=== PATIENT | female | born 1985 | race Caucasian/White ===

== ENCOUNTER 2016-05-15 13:07 | Emergency (ER) | payer OTHER ==
--- NOTE | 2016-05-15 13:36 | DIAGNOSTIC IMAGING REPORT ---
PROCEDURE: XR FINGER - LEFT INDICATION: TRAUMA/INJURY TECHNIQUE: Four views. COMPARISON: None. FINDINGS: fracture proximal phalanx first digit IMPRESSION: 1. fracture proximal phalanx first digit
--- NOTE | 2016-05-15 13:36 | DIAGNOSTIC IMAGING REPORT ---
PROCEDURE: XR FINGER - LEFT INDICATION: TRAUMA/INJURY TECHNIQUE: Four views. COMPARISON: None. FINDINGS: fracture proximal phalanx first digit IMPRESSION: 1. fracture proximal phalanx first digit
--- NOTE | 2016-05-15 15:14 | ED CLINICAL REPORT ---
Clinical Report - Physicians/Mid Levels [facility] [address] [place] [address] 05/15/2016 13:09 Patient: ROSENDO BRANHAM Time Seen: 1309; upon arrival, initial patient contact, initial documentation, patient care assumed. Arrived- By private vehicle. Historian- patient. HISTORY OF PRESENT ILLNESS Chief Complaint: Injury to the left thumb. The injury happened just prior to arrival. Occurred at home. The patient sustained a laceration from a saw (table saw). Patient is experiencing moderate pain. Patient denies injury to the head or neck. No other injury. REVIEW OF SYSTEMS The patient sustained a laceration. No swelling, tingling, numbness or weakness. All systems otherwise negative, except as recorded above. PAST HISTORY Negative. The patient's dominant hand is the right. Tetanus immunization status is unknown. SOCIAL HISTORY Never smoker. No alcohol use or drug use. No recent travel. Is a local resident. She lives with spouse. FAMILY HISTORY No significant family medical history. ADDITIONAL NOTES The nursing notes have been reviewed with agreement regarding the chief complaint, HPI, ROS, PMH and patient medications and allergies. PHYSICAL EXAM Vital Signs: 05/15/2016 13:11 BP: 125/82. HR: 74. RR: 18. O2 saturation: 98%. Temp: 98.1 F. Have been reviewed as normal and appear to be correct. Appearance: Alert. Oriented X3. Anxious. No acute distress. Head: Head atraumatic. Eyes: Pupils equal, round and reactive to light. Eyes normal inspection. Respiratory: No respiratory distress. Skin: Skin warm and dry. Skin intact. Extremities: Hand injury present. Left thumb: moderate tenderness, mild swelling and subcutaneous 1.0 cm laceration of the dorsal aspect and proximal phalanx. SEE LACERATION PROCEDURE NOTE #1. Limited movement secondary to pain (diminished extension). Neurovascular intact distally. No erythema, abrasion, ecchymosis, puncture wound or foreign body. No deformity. No subungual hematoma or amputation present. No wrist injury. Hand and wrist exam otherwise negative. Extremities otherwise negative. Neuro, Vascular and Tendons: Vascular status intact. No pulse deficit present. Capillary refill not prolonged. Sensation intact. Motor deficit present. Tendon deficit present. Possible functional tendon deficit to extensor tendon left thumb. No tendon injury seen. No sensory deficit or weakness. Neuro: Oriented X 3. No motor deficit. No sensory deficit. Note: isolated injury to thumb. LABS, X-RAYS, AND EKG X-Rays: Left digit(s). Lt UE Digits X-ray: Digit fracture of the left upper extremity. Open fracture of the proximal phalanx, thumb. (transverse). No chip, comminuted, intraarticular or angulated fracture of the left thumb. The X-rays were independently viewed by me. PROGRESS AND PROCEDURES Laceration Repair: Location: left thumb. Length: 1 cm. Complexity: simple (local anesthesia used and sutured). Wound depth/shape- subcutaneous and linear and involving fascia. Contamination present. It is not clean. No foreign body or contused tissue present. No tissue loss. Exam note: hand dirty with wood and ?stain or something. Distal neuro/vascular/tendon status normal. Tendon deficit present. (possible tendon injury, unable to visualize tendon, but pt unable to extend distal phalange,from of proximal phalange). Tendon not examined. No tendon laceration or tendon injury. Anesthesia provided by digital block using 1% lidocaine and 0.50% Marcaine (6 mL). Prepped with Betadine and Hibiclens. Wound prep- scrubbed with hibiclens sponge. Wound explored, cleansed, irrigated and examined to the base in bloodless field extensively with normal saline. Wound not debrided. No foreign material removed. irrigated with over 500ml bottle of ns. Closure of skin: 4-0 nylon (2 sutures). Skin adhesive used. Post-procedure: she is stable and there are no complications. Bleeding is controlled and neuro-vascular status is intact distal to the wound. Clean dressing applied. (per nurse/tech, see other notes). Tetanus immunization given. Estimated blood loss: 2 mL. Splint Application: Volar splint applied to left thumb. Thumb spica splint applied to upper extremity. Splint applied by tech. Reassessed extremity following splint application. Neurovascular intact. Follow-up recommended within 3 days. Course of Care: xrays shown. Patient and spouse counseled in person regarding the patient's stable condition, test results and diagnosis. Differential Diagnosis: Other possible considerations: thumb lac, fx, fb. Above considerations are based on history, physical exam and X-Ray data. Differential diagnosis was discussed with patient and patient's spouse. Disposition: Discharged home in good and improved condition (15:14). Condition: good and stable. CLINICAL IMPRESSION Open nondisplaced proximal phalanx fracture of the left thumb. No angulated fracture of the phalanx. INSTRUCTIONS Apply ice for 20 minutes four times a day for two days until better. Don't apply ice directly to skin. Elevate affected areas above chest level for two days until better. Wear fiberglass splint until released. Protect wound and keep wound area clean. (if unable to see Ortho tomorrrow, then start wound care). Leave dressing in place until seen in follow-up. Soak in warm soapy water. Apply bacitracin twice daily. Sutures should be removed in ten days. Warnings: TETANUS: You were given a tetanus shot during your visit. Make a note for future reference. GENERAL WARNINGS: Return or contact your physician immediately if your condition worsens or changes unexpectedly, if not improving as expected, or if other problems arise. Specifically return if problem worsens. Prescription Medications: Zofran 4 mg: Take 1 orally every six hours as needed for nausea/vomiting. Dispense ten (10). No refills. Substitution is permissible. Cephalexin 500 mg: take 1 capsule orally every 8 hours for 10 days. No refill. [place] 5 mg / 325 mg tablets: take 1 orally every 6 hours as needed for pain. Dispense thirty (30). No refill. Motrin 800 mg tablets: take 1 tablet orally every 8 hours as needed for pain. Dispense thirty (30). No refills. Substitution is permissible. Understanding of the discharge instructions verbalized by patient and family. Follow-up with: Ramana Gatica MD, Orthopedic Surgeon, , [address] , [place] [address]; Bentley Ross MD, Orthopedic Surgeon, , [address], , [place], [address]; Jorge Beltran M.D., Ortho, , [address], , [place] [address]; Benedict Ndiaye M.D., Ortho, , [address] [place], [address]; [facility], Ortho, , [address], , [place], [facility] Follow up tomorrow even if well. Call for an appointment. Summary of care provided to patient and family. (Electronically signed by Trina Rivera A.R.N.P. 05/15/2016 16:50)
--- NOTE | 2016-05-15 15:14 | ED CLINICAL REPORT ---
Clinical Report - Physicians/Mid Levels [facility] [address] [place] [address] 05/15/2016 13:09 Patient: ROSENDO BRANHAM Time Seen: 1309; upon arrival, initial patient contact, initial documentation, patient care assumed. Arrived- By private vehicle. Historian- patient. HISTORY OF PRESENT ILLNESS Chief Complaint: Injury to the left thumb. The injury happened just prior to arrival. Occurred at home. The patient sustained a laceration from a saw (table saw). Patient is experiencing moderate pain. Patient denies injury to the head or neck. No other injury. REVIEW OF SYSTEMS The patient sustained a laceration. No swelling, tingling, numbness or weakness. All systems otherwise negative, except as recorded above. PAST HISTORY Negative. The patient's dominant hand is the right. Tetanus immunization status is unknown. SOCIAL HISTORY Never smoker. No alcohol use or drug use. No recent travel. Is a local resident. She lives with spouse. FAMILY HISTORY No significant family medical history. ADDITIONAL NOTES The nursing notes have been reviewed with agreement regarding the chief complaint, HPI, ROS, PMH and patient medications and allergies. PHYSICAL EXAM Vital Signs: 05/15/2016 13:11 BP: 125/82. HR: 74. RR: 18. O2 saturation: 98%. Temp: 98.1 F. Have been reviewed as normal and appear to be correct. Appearance: Alert. Oriented X3. Anxious. No acute distress. Head: Head atraumatic. Eyes: Pupils equal, round and reactive to light. Eyes normal inspection. Respiratory: No respiratory distress. Skin: Skin warm and dry. Skin intact. Extremities: Hand injury present. Left thumb: moderate tenderness, mild swelling and subcutaneous 1.0 cm laceration of the dorsal aspect and proximal phalanx. SEE LACERATION PROCEDURE NOTE #1. Limited movement secondary to pain (diminished extension). Neurovascular intact distally. No erythema, abrasion, ecchymosis, puncture wound or foreign body. No deformity. No subungual hematoma or amputation present. No wrist injury. Hand and wrist exam otherwise negative. Extremities otherwise negative. Neuro, Vascular and Tendons: Vascular status intact. No pulse deficit present. Capillary refill not prolonged. Sensation intact. Motor deficit present. Tendon deficit present. Possible functional tendon deficit to extensor tendon left thumb. No tendon injury seen. No sensory deficit or weakness. Neuro: Oriented X 3. No motor deficit. No sensory deficit. Note: isolated injury to thumb. LABS, X-RAYS, AND EKG X-Rays: Left digit(s). Lt UE Digits X-ray: Digit fracture of the left upper extremity. Open fracture of the proximal phalanx, thumb. (transverse). No chip, comminuted, intraarticular or angulated fracture of the left thumb. The X-rays were independently viewed by me. PROGRESS AND PROCEDURES Laceration Repair: Location: left thumb. Length: 1 cm. Complexity: simple (local anesthesia used and sutured). Wound depth/shape- subcutaneous and linear and involving fascia. Contamination present. It is not clean. No foreign body or contused tissue present. No tissue loss. Exam note: hand dirty with wood and ?stain or something. Distal neuro/vascular/tendon status normal. Tendon deficit present. (possible tendon injury, unable to visualize tendon, but pt unable to extend distal phalange,from of proximal phalange). Tendon not examined. No tendon laceration or tendon injury. Anesthesia provided by digital block using 1% lidocaine and 0.50% Marcaine (6 mL). Prepped with Betadine and Hibiclens. Wound prep- scrubbed with hibiclens sponge. Wound explored, cleansed, irrigated and examined to the base in bloodless field extensively with normal saline. Wound not debrided. No foreign material removed. irrigated with over 500ml bottle of ns. Closure of skin: 4-0 nylon (2 sutures). Skin adhesive used. Post-procedure: she is stable and there are no complications. Bleeding is controlled and neuro-vascular status is intact distal to the wound. Clean dressing applied. (per nurse/tech, see other notes). Tetanus immunization given. Estimated blood loss: 2 mL. Splint Application: Volar splint applied to left thumb. Thumb spica splint applied to upper extremity. Splint applied by tech. Reassessed extremity following splint application. Neurovascular intact. Follow-up recommended within 3 days. Course of Care: xrays shown. Patient and spouse counseled in person regarding the patient's stable condition, test results and diagnosis. Differential Diagnosis: Other possible considerations: thumb lac, fx, fb. Above considerations are based on history, physical exam and X-Ray data. Differential diagnosis was discussed with patient and patient's spouse. Disposition: Discharged home in good and improved condition (15:14). Condition: good and stable. CLINICAL IMPRESSION Open nondisplaced proximal phalanx fracture of the left thumb. No angulated fracture of the phalanx. INSTRUCTIONS Apply ice for 20 minutes four times a day for two days until better. Don't apply ice directly to skin. Elevate affected areas above chest level for two days until better. Wear fiberglass splint until released. Protect wound and keep wound area clean. (if unable to see Ortho tomorrrow, then start wound care). Leave dressing in place until seen in follow-up. Soak in warm soapy water. Apply bacitracin twice daily. Sutures should be removed in ten days. Warnings: TETANUS: You were given a tetanus shot during your visit. Make a note for future reference. GENERAL WARNINGS: Return or contact your physician immediately if your condition worsens or changes unexpectedly, if not improving as expected, or if other problems arise. Specifically return if problem worsens. Prescription Medications: Zofran 4 mg: Take 1 orally every six hours as needed for nausea/vomiting. Dispense ten (10). No refills. Substitution is permissible. Cephalexin 500 mg: take 1 capsule orally every 8 hours for 10 days. No refill. [place] 5 mg / 325 mg tablets: take 1 orally every 6 hours as needed for pain. Dispense thirty (30). No refill. Motrin 800 mg tablets: take 1 tablet orally every 8 hours as needed for pain. Dispense thirty (30). No refills. Substitution is permissible. Understanding of the discharge instructions verbalized by patient and family. Follow-up with: Ramana Gatica MD, Orthopedic Surgeon, , [address] , [place] [address]; Bentley Ross MD, Orthopedic Surgeon, , [address], , [place], [address]; Jorge Beltran M.D., Ortho, , [address], , [place] [address]; Benedict Ndiaye M.D., Ortho, , [address] [place], [address]; [facility], Ortho, , [address], , [place], [facility] Follow up tomorrow even if well. Call for an appointment. Summary of care provided to patient and family. (Electronically signed by Trina Rivera A.R.N.P. 05/15/2016 16:50)
--- NOTE | 2016-05-15 15:15 | ED ORDER SUMMARY ---
..... Patient: ORSENDO BRANHAM OrderSheet [facility] VisitID: [id number] [place] [address] 31y, F Registration Date/Time: 05/15/2016 ORDER SHEET Weight: 68.9 kg (stated) Allergies: Mangos GENERAL ORDERS: Finger Left (1) Urgent (13:12 05/15/2016 HBivens A.R.N.P.) (Ack 13:16 RKaruga) (13:25 LWhalen R.N.) Suture Set-up: (13:13 05/15/2016 HBivens A.R.N.P.) (13:25 LWhalen R.N.) Splint (Finger) (Left) (Thumb) (thumb spica) (13:55 05/15/2016 HBivens A.R.N.P.) (14:27 LWhalen R.N.) Dress Wounds (13:56 05/15/2016 HBivens A.R.N.P.) (14:27 LWhalen R.N.) MEDICATION ORDERS: Ancef IM 1 gm (NOW) (13:30 05/15/2016 HBivens A.R.N.P.) (14:26 LWhalen R.N.) Hydrocodone-APAP PO 5/325 mg (NOW, HIGH ALERT MEDICATION) (13:55 05/15/2016 HBivens A.R.N.P.) (14:27 LWhalen R.N.) IV FLUIDS: ORDER SHEET NOTES: [Electronically signed by Dilcia Miles R.N. (16:45 05/15/2016)] [Electronically signed by Trina RiveraR.N.P. (16:50 05/15/2016)] [Electronically locked/signed by Dilcia Miles R.N. (16:45 05/15/2016)]
--- NOTE | 2016-05-15 15:15 | ED NURSING NOTES ---
Clinical Report - Nurses [facility] [address] [place] [address] 05/15/2016 13:09 Patient: ROSENDO BRANHAM [facility] [id number] TRIAGE Triage time 13:11 May 15 2016. Acuity: LEVEL 3. Chief Complaint: INJURY TO THE LEFT THUMB (laceration). RAD COMA SCORE: Rad Coma Scale: 15- eyes open spontaneously (4); best verbal response- oriented x 4 (5); best motor response- obeys commands (6). --13:15 Dilcia Miles R.N. 13:11 05/15/16. BP: 125/82. HR: 74. RR: 18. O2 saturation: 98%. Temp: 98.1 F. Pain level now 5/10. --13:15 Dilcia Miles R.N. Weight: 68.9 kg stated. Height/Length: 66 inches Per Patient. BMI: 24.5. --13:14 Dilcia Miles R.N. Medications None. --13:12 Dilcia Miles R.N. Allergies Mangos. --13:12 Dilcia Miles R.N. History Arrived by private vehicle. Historian: patient. Accompanied by family. Primary physician (). No neck pain, weakness or numbness. PAST MEDICAL HX: Negative. Tetanus status: unknown. Immunizations: up-to-date. Last normal menstrual period- 2 days ago. SOCIAL HX: Never smoker. No alcohol use or drug use. SELF HARM ASSESSMENT: A self harm assessment was performed. The patient answered "no" to the question "Have you recently felt down, depressed, or hopeless?" and "Do you have thoughts of harming or killing yourself?". FALL RISK ASSESSMENT: Fall risk assessment completed. No fall risk identified. NUTRITIONAL RISK ASSESSMENT: The nutritional risk assessment revealed no deficiencies. FUNCTIONAL ASSESSMENT: Functional assessment: no impairments noted. LEARNING NEEDS ASSESSMENT: The learning needs assessment revealed no barriers. ABUSE ASSESSMENT: Abuse assessment: (yes) The patient was asked "Do you feel safe in your home?". SKIN INTEGRITY ASSESSMENT: Skin integrity risk assessment completed. No skin integrity risk identified. --13:15 Dilcia Miles R.N. PROBLEMS: no known problems. ADDITIONAL SURGERIES: no known surgeries. Interventions ID band on patient. --13:15 Dilcia Miles R.N. PHYSICAL ASSESSMENT Ambulatory to room. GENERAL / NEURO / PSYCH: Oriented X 4. Appears anxious. EXTREMITIES: Capillary refill is less than 2 seconds in the extremities. Extremity pulses are within normal limits. Neuro-vascular status intact to the extremity. Left hand: small abrasion and laceration with controlled bleeding. ( deformity noted). SKIN: Skin intact. Skin is warm and dry. --13:16 Dilcia Miles R.N. NURSING PROGRESS NOTES The plan of care for this patient has been created. Cold pack applied. Extremity elevated. Reassurance given. Call light placed in reach. Side rails up x 1. Bed placed in lowest position. Brakes of bed on. --13:16 Dilcia Miles R.N. 14:11 05/15/2016 Ancef (CeFAZolin Sodium) IM 1 gm given. Given in the right gluteus yola. --14:26 Dilcia Miles R.N. 14:21 05/15/2016 Hydrocodone-APAP (Hydrocodone-Acetaminophen) PO 5/325 mg Tablets 1 tab given. Allergies verified, confirmed 5 rights and sedative warning given to the patient and patient's charge lpn. --14:27 Dilcia Miles R.N. Applied clean dressing consisting of 4x4 gauze, following the application of antibiotic ointment (bacitracin). Secured with gonzález bandage. Thumb spica fiberglass finger splint applied to left thumb by tech. Distal pulses intact, sensation intact and motor within normal limits. --14:32 Nivia Tang. DISPOSITION / DISCHARGE Departure time: 16:02 May 15 2016. Condition at departure: improved. No learning barriers present. Discharge instructions provided and reviewed with the patient. Reviewed medication(s) side effects, precautions, dosing and course information. Prescription(s) given to the patient. Reviewed referral to an orthopedic surgeon. Patient verbalized understanding. Written instructions provided in Azeri. The patient was discharged home and accompanied by spouse. She left the Emergency Department ambulatory and via private vehicle. Spouse driving. FALL RISK ASSESSMENT: Fall risk assessment completed. No fall risk identified. --16:03 Grecia Regan R.N. 15:58 05/15/16. BP: 99/47. HR: 71. RR: 16. O2 saturation: 100%. Pain level now: 10. --16:03 Grecia Regan R.N. Locked/Released at 05/15/2016 16:45 by Dilcia Miles R.N.
--- NOTE | 2016-05-15 15:15 | ED NURSING NOTES ---
Clinical Report - Nurses [facility] [address] [place] [address] 05/15/2016 13:09 [id number] TRI[facility] Triage time 13:11 May 15 2016. Acuity: LEVEL 3. Chief Complaint: INJURY TO THE LEFT THUMB (laceration). RAD COMA SCORE: Rad Coma Scale: 15- eyes open spontaneously (4); best verbal response- oriented x 4 (5); best motor response- obeys commands (6). --13:15 Dilcia Miles R.N. 13:11 05/15/16. BP: 125/82. HR: 74. RR: 18. O2 saturation: 98%. Temp: 98.1 F. Pain level now 5/10. --13:15 Dilcia Miles R.N. Weight: 68.9 kg stated. Height/Length: 66 inches Per Patient. BMI: 24.5. --13:14 Dilcia Miles R.N. Medications None. --13:12 Dilcia Miles R.N. Allergies Mangos. --13:12 Dilcia Miles R.N. History Arrived by private vehicle. Historian: patient. Accompanied by family. Primary physician (). No neck pain, weakness or numbness. PAST MEDICAL HX: Negative. Tetanus status: unknown. Immunizations: up-to-date. Last normal menstrual period- 2 days ago. SOCIAL HX: Never smoker. No alcohol use or drug use. SELF HARM ASSESSMENT: A self harm assessment was performed. The patient answered "no" to the question "Have you recently felt down, depressed, or hopeless?" and "Do you have thoughts of harming or killing yourself?". FALL RISK ASSESSMENT: Fall risk assessment completed. No fall risk identified. NUTRITIONAL RISK ASSESSMENT: The nutritional risk assessment revealed no deficiencies. FUNCTIONAL ASSESSMENT: Functional assessment: no impairments noted. LEARNING NEEDS ASSESSMENT: The learning needs assessment revealed no barriers. ABUSE ASSESSMENT: Abuse assessment: (yes) The patient was asked "Do you feel safe in your home?". SKIN INTEGRITY ASSESSMENT: Skin integrity risk assessment completed. No skin integrity risk identified. --13:15 Dilcia Miles R.N. PROBLEMS: no known problems. ADDITIONAL SURGERIES: no known surgeries. Interventions ID band on patient. --13:15 Dilcia Miles R.N. PHYSICAL ASSESSMENT Ambulatory to room. GENERAL / NEURO / PSYCH: Oriented X 4. Appears anxious. EXTREMITIES: Capillary refill is less than 2 seconds in the extremities. Extremity pulses are within normal limits. Neuro-vascular status intact to the extremity. Left hand: small abrasion and laceration with controlled bleeding. ( deformity noted). SKIN: Skin intact. Skin is warm and dry. --13:16 Dilcia Miles R.N. NURSING PROGRESS NOTES The plan of care for this patient has been created. Cold pack applied. Extremity elevated. Reassurance given. Call light placed in reach. Side rails up x 1. Bed placed in lowest position. Brakes of bed on. --13:16 Dilcia Miles R.N. 14:11 05/15/2016 Ancef (CeFAZolin Sodium) IM 1 gm given. Given in the right gluteus yola. --14:26 Dilcia Miles R.N. 14:21 05/15/2016 Hydrocodone-APAP (Hydrocodone-Acetaminophen) PO 5/325 mg Tablets 1 tab given. Allergies verified, confirmed 5 rights and sedative warning given to the patient and patient's software test developer. --14:27 Dilcia Miles R.N. Applied clean dressing consisting of 4x4 gauze, following the application of antibiotic ointment (bacitracin). Secured with gonzález bandage. Thumb spica fiberglass finger splint applied to left thumb by tech. Distal pulses intact, sensation intact and motor within normal limits. --14:32 Nivia Tang. DISPOSITION / DISCHARGE Departure time: 16:02 May 15 2016. Condition at departure: improved. No learning barriers present. Discharge instructions provided and reviewed with the patient. Reviewed medication(s) side effects, precautions, dosing and course information. Prescription(s) given to the patient. Reviewed referral to an orthopedic surgeon. Patient verbalized understanding. Written instructions provided in Polish. The patient was discharged home and accompanied by spouse. She left the Emergency Department ambulatory and via private vehicle. Spouse driving. FALL RISK ASSESSMENT: Fall risk assessment completed. No fall risk identified. --16:03 Grecia Regan R.N. 15:58 05/15/16. BP: 99/47. HR: 71. RR: 16. O2 saturation: 100%. Pain level now: 10. --16:03 Grecia Regan R.N. Locked/Released at 05/15/2016 16:45 by Dilcia Miles R.N.
--- NOTE | 2016-05-15 15:15 | ED ORDER SUMMARY ---
..... Patient: ROSENDO BRANHAM OrderSheet [facility] VisitID: [id number] [place] [address] 31y, F Registration Date/Time: 05/15/2016 ORDER SHEET Weight: 68.9 kg (stated) Allergies: Mangos GENERAL ORDERS: Finger Left (1) Urgent (13:12 05/15/2016 HBivens A.R.N.P.) (Ack 13:16 RKaruga) (13:25 LWhalen R.N.) Suture Set-up: (13:13 05/15/2016 HBivens A.R.N.P.) (13:25 LWhalen R.N.) Splint (Finger) (Left) (Thumb) (thumb spica) (13:55 05/15/2016 HBivens A.R.N.P.) (14:27 LWhalen R.N.) Dress Wounds (13:56 05/15/2016 HBivens A.R.N.P.) (14:27 LWhalen R.N.) MEDICATION ORDERS: Ancef IM 1 gm (NOW) (13:30 05/15/2016 HBivens A.R.N.P.) (14:26 LWhalen R.N.) Hydrocodone-APAP PO 5/325 mg (NOW, HIGH ALERT MEDICATION) (13:55 05/15/2016 HBivens A.R.N.P.) (14:27 LWhalen R.N.) IV FLUIDS: ORDER SHEET NOTES: [Electronically signed by Dilcia Miles R.N. (16:45 05/15/2016)] [Electronically signed by Trina RiveraR.N.P. (16:50 05/15/2016)] [Electronically locked/signed by iDlcia Miles R.N. (16:45 05/15/2016)]
--- NOTE | 2016-05-15 16:51 | ED MED RECONCILIATION SUMMARY ---
Patient: ROSENDO BRANHAM Medication Reconciliation Report [facility] VisitID: [id number] [place] [address] 31y, F Registration Date/Time: 05/15/2016 Weight: 68.9 kg Height/Length: 66 in. BMI: 24.5 ALLERGIES: Mangos The patient's Home Medications are listed below: NONE. The source(s) of the original Home Medication information: Not obtained. The following Medications were given to the patient in the Emergency Department: Ancef [IM] IM 1 gm, administered: 05/15/2016 2:11:00 PM Hydrocodone-APAP [PO] PO 1 tab, administered: 05/15/2016 2:21:00 PM The following Medications were prescribed to the patient: Zofran 4 mg: Take 1 orally every six hours as needed for nausea/vomiting. Dispense ten (10). No refills. Substitution is permissible. -- Trina Rivera, A.R.N.P. Cephalexin 500 mg: take 1 capsule orally every 8 hours for 10 days. No refill. -- Trina Rivera, A.R.N.P. [place] 5 mg / 325 mg tablets: take 1 orally every 6 hours as needed for pain. Dispense thirty (30). No refill. -- Trina Rivera, A.R.N.P. Motrin 800 mg tablets: take 1 tablet orally every 8 hours as needed for pain. Dispense thirty (30). No refills. Substitution is permissible. -- Trina Rivera A.R.N.P.
--- NOTE | 2016-05-15 16:51 | ED MED RECONCILIATION SUMMARY ---
Patient: ROSENDO BRANHAM Medication Reconciliation Report [facility] VisitID: [id number] [place] [address] 31y, F Registration Date/Time: 05/15/2016 Weight: 68.9 kg Height/Length: 66 in. BMI: 24.5 ALLERGIES: Mangos The patient's Home Medications are listed below: NONE. The source(s) of the original Home Medication information: Not obtained. The following Medications were given to the patient in the Emergency Department: Ancef [IM] IM 1 gm, administered: 05/15/2016 2:11:00 PM Hydrocodone-APAP [PO] PO 1 tab, administered: 05/15/2016 2:21:00 PM The following Medications were prescribed to the patient: Zofran 4 mg: Take 1 orally every six hours as needed for nausea/vomiting. Dispense ten (10). No refills. Substitution is permissible. -- Trina Rivera, A.R.N.P. Cephalexin 500 mg: take 1 capsule orally every 8 hours for 10 days. No refill. -- Trina Rivera, A.R.N.P. [place] 5 mg / 325 mg tablets: take 1 orally every 6 hours as needed for pain. Dispense thirty (30). No refill. -- Trina Rivera, A.R.N.P. Motrin 800 mg tablets: take 1 tablet orally every 8 hours as needed for pain. Dispense thirty (30). No refills. Substitution is permissible. -- Trina Rivera A.R.N.P.
--- NOTE | 2016-05-15 16:51 | ED MAR SUMMARY ---
..... Medication Administration Record [facility] [address] [place] [address] Patient: ROSENDO BRANHAM Visit ID: [id number] 31y, F Weight: 68.9 kg Height/Length: 66 in BMI: 24.5 ALLERGIES: Mangos Given 14:11 05/15/2016 Dilcia Miles, RGigiNGigi Medication Administered: ANCEF [IM] (CEFAZOLIN SODIUM), Dose: 1 gm IM. Medication Ordered: Ancef IM 1 gm (NOW). Given 14:21 05/15/2016 Dilcia Miles, R.N. Medication Administered: HYDROCODONE-APAP [PO] (HYDROCODONE-ACETAMINOPHEN), Dose: 1 tab 5/325 mg Tablets PO. Medication Ordered: Hydrocodone-APAP PO 5/325 mg (NOW, HIGH ALERT MEDICATION).
--- NOTE | 2016-05-15 16:51 | ED DISCHARGE INSTRUCTIONS ---
Patient: ROSENDO BRANHAM General Instructions [facility] VisitID: [id number] [address], [place] [address] 31y, F Registration Date/Time: 05/15/2016 Open nondisplaced proximal phalanx fracture of the left thumb. No angulated fracture of the phalanx. INSTRUCTIONS Apply ice for 20 minutes four times a day for two days until better. Don't apply ice directly to skin. Elevate affected areas above chest level for two days until better. Wear fiberglass splint until released. Protect wound and keep wound area clean. (if unable to see Ortho tomorrrow, then start wound care). Leave dressing in place until seen in follow-up. Soak in warm soapy water. Apply bacitracin twice daily. Sutures should be removed in ten days. Warnings: TETANUS: You were given a tetanus shot during your visit. Make a note for future reference. GENERAL WARNINGS: Return or contact your physician immediately if your condition worsens or changes unexpectedly, if not improving as expected, or if other problems arise. Specifically return if problem worsens. Prescription Medications: Zofran 4 mg: Take 1 orally every six hours as needed for nausea/vomiting. Dispense ten (10). No refills. Substitution is permissible. Cephalexin 500 mg: take 1 capsule orally every 8 hours for 10 days. No refill. Moffett 5 mg / 325 mg tablets: take 1 orally every 6 hours as needed for pain. Dispense thirty (30). No refill. Motrin 800 mg tablets: take 1 tablet orally every 8 hours as needed for pain. Dispense thirty (30). No refills. Substitution is permissible. Understanding of the discharge instructions verbalized by patient and family. Follow-up with: Ramana Gatica MD, Orthopedic Surgeon, , [address] , [place] [id number]; Bentley Ross MD, Orthopedic Surgeon, , [address], , [place], [address]; Jorge Beltran M.D., Ortho, , [address], , [place] [id number]; Benedict Ndiaye M.D., Ortho, , [address] [place], [address]; [facility], Ortho, , [address] [place], [address] Follow up tomorrow even if well. Call for an appointment. Summary of care provided to patient and family. ADDITIONAL INFORMATION Fracture:Finger [Open] You have a fracture of your finger (broken finger) with a nearby cut, puncture or deep scrape. This causes local pain, swelling and bruising. Because of the open injury, there is a risk of infection in the skin and bone. Antibiotics will be used to lower the risk of infection. This injury takes about four weeks to heal. Finger injuries are often treated with a splint, cast or by taping the injured finger to the next one ("mesha taping"). This protects the injured finger and holds the bone in position while it heals. More serious fractures may require surgery. If the FINGERNAIL has been severely injured, it will probably fall off in 1-2 weeks. A new fingernail will usually start to grow back within a month. Home Care: Keep your hand elevated to reduce pain and swelling. When sitting or lying down elevate your arm above the level of your heart. You can do this by placing your arm on a pillow that rests on your chest or on a pillow at your side. This is most important during the first 48 hours after injury. Apply an ice pack (ice cubes in a plastic bag, wrapped in a towel) over the injured area for 20 minutes every 1-2 hours the first day for pain relief. Continue this 3-4 times a day until the pain and swelling goes away. Keep the cast/splint completely dry at all times. Bathe with your cast/splint out of the water, protected with a large plastic bag, rubber-banded at the top end. If a fiberglass cast/splint gets wet, you can dry it with a hair-dryer. If mesha tape was applied and it becomes wet or dirty, change it. You may replace it with paper, plastic or cloth tape. Cloth tape and paper tapes must be kept dry. Keep the mesha tape in place for at least four weeks. You may use acetaminophen (Tylenol) or ibuprofen (Motrin, Advil) to control pain, unless another pain medicine was prescribed. [ NOTE : If you have chronic liver or kidney disease or ever had a stomach ulcer or GI bleeding, talk with your doctor before using these medicines.] Take all antibiotics until finished. Follow Up with your doctor within one week, or as advised by our staff, to be sure the bone is healing properly, . [NOTE: A radiologist will review any X-rays that were taken. We will notify you of any new findings that may affect your care.] Return Promptly or contact your doctor if any of the following occur: The plaster cast or splint becomes wet or soft The fiberglass cast or splint remains wet for more than 24 hours Pain or swelling increase Finger becomes cold, blue, numb or tingly Redness, warmth, swelling, drainage from the wound or foul odor from a cast or splint Fever of 100.4F (38C) or higher, or as directed by your healthcare provider Splint Care, Fiberglass The following will help you care for your splint: It will take up totwo hours for your fiber glass splint to fully harden; therefore, do notapply any pressure on it during that time or else it may break. To prevent swelling under the splint, for thefirst 48 hours: If the splint is on yourarm, keep it in a sling or raised to shoulder level when sitting or standing; rest it on your chest or on a pillow at your side when lying down. If the splint is on yourfoot, keep it propped up above the level of your waist when sitting or lying. Avoid crutch walking as much as possible during this time. Keep the splint/cast dry at all times. Bathe with your splint/cast well out of the water, protected with a large plastic bag, rubber-banded at the top end. If a fiberglass cast or splint gets wet, you can dry it with a hair-dryer. Follow-up care Follow up with your doctor or this facility as advised. When to seek medical care Get prompt medical attention if any of the following occur: Bad odor from the splint or wound-fluid stains the splint The splint cracks or remains wet over 24 hours Increasing tightness or pressure under the splint Fingers or toes become swollen, cold, blue, numb or tingly Increased pain under the splint Diphtheria Toxoid Adsorbed, Pertussis Vaccine, Acellular (Adsorbed), Tetanus Toxoid, Adsorbed Suspension for injection What is this medicine? DIPHTHERIA and TETANUS TOXOIDS; PERTUSSIS VACCINE (dif THEER ee uh and TET n us TOK soids; per TUS sean valentine SEEN) is used to prevent diphtheria, tetanus, and pertussis infections. How should I use this medicine? This vaccine is for injection into a muscle. It is given by a health child care education coordinator. A copy of Vaccine Information Statements will be given before each vaccination. Read this sheet carefully each time. The sheet may change frequently. Talk to your bonderizer operator regarding the use of this vaccine in children. While the DTP vaccine may be given to children ages 6 weeks to 7 years and the Tdap vaccine may be given to children at least 10 years old, precautions do apply. What side effects may I notice from receiving this medicine? Side effects that you should report to your doctor or health child care education coordinator as soon as possible: allergic reactions like skin rash, itching or hives, swelling of the face, lips, or tongue breathing problems fever of 103 degrees F or more flu-like symptoms inconsolable crying infection pain, tingling, numbness in the hands or feet seizures swelling of arm or leg that was injected unusually weak or tired Side effects that usually do not require immediate medical attention (report these side effects to your doctor or health child care education coordinator if they continue or are bothersome): fussy, irritable loss of appetite fever of 102 degrees F or less pain, tenderness, redness, swelling, or a 'knot' at site where injected vomiting What may interact with this medicine? immune globulin medicines that suppress your immune function like adalimumab, anakinra, infliximab medicines to treat cancer medicines that treat or prevent blood clots like warfarin, enoxaparin, and dalteparin steroid medicines like prednisone or cortisone What if I miss a dose? It is important not to miss your dose. Call your doctor or health child care education coordinator if you are unable to keep an appointment. Where should I keep my medicine? This drug is given in a hospital or clinic and will not be stored at home. What should I tell my health care provider before I take this medicine? They need to know if you have any of these conditions: blood disorders like hemophilia fever or infection immune system problems neurologic disease seizures an unusual or allergic reaction to vaccines, thimerosal, latex, other medicines, foods, dyes, or preservatives or trying to get breast-feeding What should I watch for while using this medicine? See your health care provider for all shots of this vaccine as directed. To have protection from infection, you must have 3 shots of this vaccine plus boosters as needed. Tell your doctor right away if you have any serious or unusual side effects after getting this vaccine. Ondansetron Oral disintegrating tablet What is this medicine? ONDANSETRON (on LUZ ELENA se walker) is used to treat nausea and vomiting caused by chemotherapy. It is also used to prevent or treat nausea and vomiting after surgery. How should I use this medicine? These tablets are made to dissolve in the mouth. Do not try to push the tablet through the foil backing. With dry hands, peel away the foil backing and gently remove the tablet. Place the tablet in the mouth and allow it to dissolve, then swallow. While you may take these tablets with water, it is not necessary to do so. Talk to your bonderizer operator regarding the use of this medicine in children. Special care may be needed. What side effects may I notice from receiving this medicine? Side effects that you should report to your doctor or health child care education coordinator as soon as possible: allergic reactions like skin rash, itching or hives, swelling of the face, lips, or tongue breathing problems dizziness fast or irregular heartbeat feeling faint or lightheaded, falls fever and chills swelling of the hands and feet tightness in the chest Side effects that usually do not require medical attention (report to your doctor or health child care education coordinator if they continue or are bothersome): constipation or diarrhea headache What may interact with this medicine? Do not take this medicine with any of the following medications: -apomorphine -cisapride -dofetilide -dronedarone -pimozide -thioridazine -ziprasidone This medicine may also interact with the following medications: -carbamazepine -phenytoin -rifampicin -tramadol -other medicines that prolong the QT interval (cause an abnormal heart rhythm) What if I miss a dose? If you miss a dose, take it as soon as you can. If it is almost time for your next dose, take only that dose. Do not take double or extra doses. Where should I keep my medicine? Keep out of the reach of children. Store between 2 and 30 degrees C (36 and 86 degrees F). Throw away any unused medicine after the expiration date. What should I tell my health care provider before I take this medicine? They need to know if you have any of these conditions: heart disease history of irregular heartbeat liver disease low levels of magnesium or potassium in the blood an unusual or allergic reaction to ondansetron, granisetron, other medicines, foods, dyes, or preservatives or trying to get breast-feeding What should I watch for while using this medicine? Check with your doctor or health child care education coordinator as soon as you can if you have any sign of an allergic reaction. Cephalexin Monohydrate Oral tablet What is this medicine? CEPHALEXIN (sef a RALPH in) is a cephalosporin antibiotic. It is used to treat certain kinds of bacterial infections It will not work for colds, flu, or other viral infections. How should I use this medicine? Take this medicine by mouth with a full glass of water. Follow the directions on the prescription label. This medicine can be taken with or without food. Take your medicine at regular intervals. Do not take your medicine more often than directed. Take all of your medicine as directed even if you think you are better. Do not skip doses or stop your medicine early. Talk to your bonderizer operator regarding the use of this medicine in children. While this drug may be prescribed for selected conditions, precautions do apply. What side effects may I notice from receiving this medicine? Side effects that you should report to your doctor or health child care education coordinator as soon as possible: allergic reactions like skin rash, itching or hives, swelling of the face, lips, or tongue breathing problems pain or trouble passing urine redness, blistering, peeling or loosening of the skin, including inside the mouth severe or watery diarrhea unusually weak or tired yellowing of the eyes, skin Side effects that usually do not require medical attention (report to your doctor or health child care education coordinator if they continue or are bothersome): gas or heartburn genital or anal irritation headache joint or muscle pain nausea, vomiting What may interact with this medicine? probenecid some other antibiotics What if I miss a dose? If you miss a dose, take it as soon as you can. If it is almost time for your next dose, take only that dose. Do not take double or extra doses. There should be at least 4 to 6 hours between doses. Where should I keep my medicine? Keep out of the reach of children. Store at room temperature between 59 and 86 degrees F (15 and 30 degrees C). Throw away any unused medicine after the expiration date. What should I tell my health care provider before I take this medicine? They need to know if you have any of these conditions: kidney disease stomach or intestine problems, especially colitis an unusual or allergic reaction to cephalexin, other cephalosporins, penicillins, other antibiotics, medicines, foods, dyes or preservatives or trying to get breast-feeding What should I watch for while using this medicine? Tell your doctor or health child care education coordinator if your symptoms do not begin to improve in a few days. Do not treat diarrhea with over the counter products. Contact your doctor if you have diarrhea that lasts more than 2 days or if it is severe and watery. If you have diabetes, you may get a false-positive result for sugar in your urine. Check with your doctor or health child care education coordinator. Hydrocodone Bitartrate, Acetaminophen Oral tablet What is this medicine? ACETAMINOPHEN; HYDROCODONE (a set a MATTY rangel fen; lucius droe KOE done) is a pain reliever. It is used to treat mild to moderate pain. How should I use this medicine? Take this medicine by mouth. Swallow it with a full glass of water. Follow the directions on the prescription label. If the medicine upsets your stomach, take the medicine with food or milk. Do not take more than you are told to take. Talk to your bonderizer operator regarding the use of this medicine in children. This medicine is not approved for use in children. What side effects may I notice from receiving this medicine? Side effects that you should report to your doctor or health child care education coordinator as soon as possible: allergic reactions like skin rash, itching or hives, swelling of the face, lips, or tongue breathing problems confusion feeling faint or lightheaded, falls stomach pain yellowing of the eyes or skin Side effects that usually do not require medical attention (report to your doctor or health child care education coordinator if they continue or are bothersome): nausea, vomiting stomach upset What may interact with this medicine? alcohol antihistamines isoniazid medicines for depression, anxiety, or psychotic disturbances medicines for sleep muscle relaxants naltrexone narcotic medicines (opiates) for pain phenobarbital ritonavir tramadol What if I miss a dose? If you miss a dose, take it as soon as you can. If it is almost time for your next dose, take only that dose. Do not take double or extra doses. Where should I keep my medicine? Keep out of the reach of children. This medicine can be abused. Keep your medicine in a safe place to protect it from theft. Do not share this medicine with anyone. Selling or giving away this medicine is dangerous and against the law. Store at room temperature between 15 and 30 degrees C (59 and 86 degrees F). Protect from light. Keep container tightly closed. Throw away any unused medicine after the expiration date. Discard unused medicine and used packaging carefully. Pets and children can be harmed if they find used or lost packages. What should I tell my health care provider before I take this medicine? They need to know if you have any of these conditions: brain tumor Crohn's disease, inflammatory bowel disease, or ulcerative colitis drink more than 3 alcohol-containing drinks per day drug abuse or addiction head injury heart or circulation problems kidney disease or problems going to the bathroom liver disease lung disease, asthma, or breathing problems an unusual or allergic reaction to acetaminophen, hydrocodone, other opioid analgesics, other medicines, foods, dyes, or preservatives or trying to get breast-feeding What should I watch for while using this medicine? Tell your doctor or health child care education coordinator if your pain does not go away, if it gets worse, or if you have new or a different type of pain. You may develop tolerance to the medicine. Tolerance means that you will need a higher dose of the medicine for pain relief. Tolerance is normal and is expected if you take the medicine for a long time. Do not suddenly stop taking your medicine because you may develop a severe reaction. Your body becomes used to the medicine. This does NOT mean you are addicted. Addiction is a behavior related to getting and using a drug for a non-medical reason. If you have pain, you have a medical reason to take pain medicine. Your doctor will tell you how much medicine to take. If your doctor wants you to stop the medicine, the dose will be slowly lowered over time to avoid any side effects. You may get drowsy or dizzy when you first start taking the medicine or change doses. Do not drive, use machinery, or do anything that may be dangerous until you know how the medicine affects you. Stand or sit up slowly. There are different types of narcotic medicines (opiates) for pain. If you take more than one type at the same time, you may have more side effects. Give your health care provider a list of all medicines you use. Your doctor will tell you how much medicine to take. Do not take more medicine than directed. Call emergency for help if you have problems breathing. The medicine will cause constipation. Try to have a bowel movement at least every 2 to 3 days. If you do not have a bowel movement for 3 days, call your doctor or health child care education coordinator. Too much acetaminophen can be very dangerous. Do not take Tylenol (acetaminophen) or medicines that contain acetaminophen with this medicine. Many non-prescription medicines contain acetaminophen. Always read the labels carefully. Ibuprofen Oral tablet What is this medicine? IBUPROFEN (eye BYOO proe fen) is a non-steroidal anti-inflammatory drug (NSAID). It is used for dental pain, fever, headaches or migraines, osteoarthritis, rheumatoid arthritis, or painful monthly periods. It can also relieve minor aches and pains caused by a cold, flu, or sore throat. How should I use this medicine? Take this medicine by mouth with a glass of water. Follow the directions on the prescription label. Take this medicine with food if your stomach gets upset. Try to not lie down for at least 10 minutes after you take the medicine. Take your medicine at regular intervals. Do not take your medicine more often than directed. A special MedGuide will be given to you by the pharmacist with each prescription and refill. Be sure to read this information carefully each time. Talk to your bonderizer operator regarding the use of this medicine in children. Special care may be needed. What side effects may I notice from receiving this medicine? Side effects that you should report to your doctor or health child care education coordinator as soon as possible: allergic reactions like skin rash, itching or hives, swelling of the face, lips, or tongue black or bloody stools, blood in the urine or in vomit breathing problems changes in vision chest pain general ill feeling or flu-like symptoms nausea or vomiting redness, blistering, peeling or loosening of the skin, including inside the mouth slurred speech or weakness on one side of the body stomach pain unexplained weight gain or swelling unusually weak or tired yellowing of eyes or skin Side effects that usually do not require medical attention (report to your doctor or health child care education coordinator if they continue or are bothersome): constipation or diarrhea dizziness gas or heartburn stomach upset What may interact with this medicine? Do not take this medicine with any of the following medications: cidofovir ketorolac methotrexate pemetrexed This medicine may also interact with the following medications: alcohol aspirin diuretics lithium other drugs for inflammation like prednisone warfarin What if I miss a dose? If you miss a dose, take it as soon as you can. If it is almost time for your next dose, take only that dose. Do not take double or extra doses. Where should I keep my medicine? Keep out of the reach of children. Store at room temperature between 15 and 30 degrees C (59 and 86 degrees F). Keep container tightly closed. Throw away any unused medicine after the expiration date. What should I tell my health care provider before I take this medicine? They need to know if you have any of these conditions: asthma cigarette smoker drink more than 3 alcohol containing drinks a day heart disease or circulation problems such as heart failure or leg edema (fluid retention) high blood pressure kidney disease liver disease stomach bleeding or ulcers an unusual or allergic reaction to ibuprofen, aspirin, other NSAIDS, other medicines, foods, dyes, or preservatives or trying to get breast-feeding What should I watch for while using this medicine? Tell your doctor or healthcare professional if your symptoms do not start to get better or if they get worse. This medicine does not prevent heart attack or stroke. In fact, this medicine may increase the chance of a heart attack or stroke. The chance may increase with longer use of this medicine and in people who have heart disease. If you take aspirin to prevent heart attack or stroke, talk with your doctor or health child care education coordinator. Do not take other medicines that contain aspirin, ibuprofen, or naproxen with this medicine. Side effects such as stomach upset, nausea, or ulcers may be more likely to occur. Many medicines available without a prescription should not be taken with this medicine. This medicine can cause ulcers and bleeding in the stomach and intestines at any time during treatment. Ulcers and bleeding can happen without warning symptoms and can cause . To reduce your risk, do not smoke cigarettes or drink alcohol while you are taking this medicine. You may get drowsy or dizzy. Do not drive, use machinery, or do anything that needs mental alertness until you know how this medicine affects you. Do not stand or sit up quickly, especially if you are an older patient. This reduces the risk of dizzy or fainting spells. This medicine can cause you to bleed more easily. Try to avoid damage to your teeth and gums when you brush or floss your teeth. You have been given the following additional information: Fracture, Finger (Open) Splint Care, Fiberglass Diphtheria Toxoid Adsorbed, Pertussis Vaccine, Acellular (Adsorbed), Tetanus Toxoid, Adsorbed Suspension for injection Ondansetron Oral disintegrating tablet Cephalexin Monohydrate Oral tablet Hydrocodone Bitartrate, Acetaminophen Oral tablet Ibuprofen Oral tablet (Electronically signed by Trina Rivera A.R.N.P. 05/15/2016 16:50)
--- NOTE | 2016-05-15 16:51 | ED MAR SUMMARY ---
..... Medication Administration Record [facility] [address] [place] [address] Patient: ROSENDO BRANHAM Visit ID: [id number] 31y, F Weight: 68.9 kg Height/Length: 66 in BMI: 24.5 ALLERGIES: Mangos Given 14:11 05/15/2016 Dilcia Miles, RGigiNGigi Medication Administered: ANCEF [IM] (CEFAZOLIN SODIUM), Dose: 1 gm IM. Medication Ordered: Ancef IM 1 gm (NOW). Given 14:21 05/15/2016 Dilcia Miles, R.N. Medication Administered: HYDROCODONE-APAP [PO] (HYDROCODONE-ACETAMINOPHEN), Dose: 1 tab 5/325 mg Tablets PO. Medication Ordered: Hydrocodone-APAP PO 5/325 mg (NOW, HIGH ALERT MEDICATION).
--- NOTE | 2016-05-15 16:51 | ED DISCHARGE INSTRUCTIONS ---
Patient: ROSENDO BRANHAM General Instructions [facility] VisitID: [id number] [address], [place] [address] 31y, F Registration Date/Time: 05/15/2016 Open nondisplaced proximal phalanx fracture of the left thumb. No angulated fracture of the phalanx. INSTRUCTIONS Apply ice for 20 minutes four times a day for two days until better. Don't apply ice directly to skin. Elevate affected areas above chest level for two days until better. Wear fiberglass splint until released. Protect wound and keep wound area clean. (if unable to see Ortho tomorrrow, then start wound care). Leave dressing in place until seen in follow-up. Soak in warm soapy water. Apply bacitracin twice daily. Sutures should be removed in ten days. Warnings: TETANUS: You were given a tetanus shot during your visit. Make a note for future reference. GENERAL WARNINGS: Return or contact your physician immediately if your condition worsens or changes unexpectedly, if not improving as expected, or if other problems arise. Specifically return if problem worsens. Prescription Medications: Zofran 4 mg: Take 1 orally every six hours as needed for nausea/vomiting. Dispense ten (10). No refills. Substitution is permissible. Cephalexin 500 mg: take 1 capsule orally every 8 hours for 10 days. No refill. Denhoff 5 mg / 325 mg tablets: take 1 orally every 6 hours as needed for pain. Dispense thirty (30). No refill. Motrin 800 mg tablets: take 1 tablet orally every 8 hours as needed for pain. Dispense thirty (30). No refills. Substitution is permissible. Understanding of the discharge instructions verbalized by patient and family. Follow-up with: Ramana Gatica MD, Orthopedic Surgeon, , [address] , [place] [id number]; Bentley Ross MD, Orthopedic Surgeon, , [address], , [place], [address]; Jorge Beltran M.D., Ortho, , [address], , [place] [id number]; Benedict Ndiaye M.D., Ortho, , [address] [place], [address]; [facility], [facility]o, , [address] [place], [address] Follow up tomorrow even if well. Call for an appointment. Summary of care provided to patient and family. ADDITIONAL INFORMATION Fracture:Finger [Open] You have a fracture of your finger (broken finger) with a nearby cut, puncture or deep scrape. This causes local pain, swelling and bruising. Because of the open injury, there is a risk of infection in the skin and bone. Antibiotics will be used to lower the risk of infection. This injury takes about four weeks to heal. Finger injuries are often treated with a splint, cast or by taping the injured finger to the next one ("mesha taping"). This protects the injured finger and holds the bone in position while it heals. More serious fractures may require surgery. If the FINGERNAIL has been severely injured, it will probably fall off in 1-2 weeks. A new fingernail will usually start to grow back within a month. Home Care: Keep your hand elevated to reduce pain and swelling. When sitting or lying down elevate your arm above the level of your heart. You can do this by placing your arm on a pillow that rests on your chest or on a pillow at your side. This is most important during the first 48 hours after injury. Apply an ice pack (ice cubes in a plastic bag, wrapped in a towel) over the injured area for 20 minutes every 1-2 hours the first day for pain relief. Continue this 3-4 times a day until the pain and swelling goes away. Keep the cast/splint completely dry at all times. Bathe with your cast/splint out of the water, protected with a large plastic bag, rubber-banded at the top end. If a fiberglass cast/splint gets wet, you can dry it with a hair-dryer. If mesha tape was applied and it becomes wet or dirty, change it. You may replace it with paper, plastic or cloth tape. Cloth tape and paper tapes must be kept dry. Keep the mesha tape in place for at least four weeks. You may use acetaminophen (Tylenol) or ibuprofen (Motrin, Advil) to control pain, unless another pain medicine was prescribed. [ NOTE : If you have chronic liver or kidney disease or ever had a stomach ulcer or GI bleeding, talk with your doctor before using these medicines.] Take all antibiotics until finished. Follow Up with your doctor within one week, or as advised by our staff, to be sure the bone is healing properly, . [NOTE: A radiologist will review any X-rays that were taken. We will notify you of any new findings that may affect your care.] Return Promptly or contact your doctor if any of the following occur: The plaster cast or splint becomes wet or soft The fiberglass cast or splint remains wet for more than 24 hours Pain or swelling increase Finger becomes cold, blue, numb or tingly Redness, warmth, swelling, drainage from the wound or foul odor from a cast or splint Fever of 100.4F (38C) or higher, or as directed by your healthcare provider Splint Care, Fiberglass The following will help you care for your splint: It will take up totwo hours for your fiber glass splint to fully harden; therefore, do notapply any pressure on it during that time or else it may break. To prevent swelling under the splint, for thefirst 48 hours: If the splint is on yourarm, keep it in a sling or raised to shoulder level when sitting or standing; rest it on your chest or on a pillow at your side when lying down. If the splint is on yourfoot, keep it propped up above the level of your waist when sitting or lying. Avoid crutch walking as much as possible during this time. Keep the splint/cast dry at all times. Bathe with your splint/cast well out of the water, protected with a large plastic bag, rubber-banded at the top end. If a fiberglass cast or splint gets wet, you can dry it with a hair-dryer. Follow-up care Follow up with your doctor or this facility as advised. When to seek medical care Get prompt medical attention if any of the following occur: Bad odor from the splint or wound-fluid stains the splint The splint cracks or remains wet over 24 hours Increasing tightness or pressure under the splint Fingers or toes become swollen, cold, blue, numb or tingly Increased pain under the splint Diphtheria Toxoid Adsorbed, Pertussis Vaccine, Acellular (Adsorbed), Tetanus Toxoid, Adsorbed Suspension for injection What is this medicine? DIPHTHERIA and TETANUS TOXOIDS; PERTUSSIS VACCINE (dif THEER ee uh and TET n us TOK soids; per TUS sean valentine SEEN) is used to prevent diphtheria, tetanus, and pertussis infections. How should I use this medicine? This vaccine is for injection into a muscle. It is given by a health day care assistant. A copy of Vaccine Information Statements will be given before each vaccination. Read this sheet carefully each time. The sheet may change frequently. Talk to your night time nanny regarding the use of this vaccine in children. While the DTP vaccine may be given to children ages 6 weeks to 7 years and the Tdap vaccine may be given to children at least 10 years old, precautions do apply. What side effects may I notice from receiving this medicine? Side effects that you should report to your doctor or health day care assistant as soon as possible: allergic reactions like skin rash, itching or hives, swelling of the face, lips, or tongue breathing problems fever of 103 degrees F or more flu-like symptoms inconsolable crying infection pain, tingling, numbness in the hands or feet seizures swelling of arm or leg that was injected unusually weak or tired Side effects that usually do not require immediate medical attention (report these side effects to your doctor or health day care assistant if they continue or are bothersome): fussy, irritable loss of appetite fever of 102 degrees F or less pain, tenderness, redness, swelling, or a 'knot' at site where injected vomiting What may interact with this medicine? immune globulin medicines that suppress your immune function like adalimumab, anakinra, infliximab medicines to treat cancer medicines that treat or prevent blood clots like warfarin, enoxaparin, and dalteparin steroid medicines like prednisone or cortisone What if I miss a dose? It is important not to miss your dose. Call your doctor or health day care assistant if you are unable to keep an appointment. Where should I keep my medicine? This drug is given in a hospital or clinic and will not be stored at home. What should I tell my health care provider before I take this medicine? They need to know if you have any of these conditions: blood disorders like hemophilia fever or infection immune system problems neurologic disease seizures an unusual or allergic reaction to vaccines, thimerosal, latex, other medicines, foods, dyes, or preservatives or trying to get breast-feeding What should I watch for while using this medicine? See your health care provider for all shots of this vaccine as directed. To have protection from infection, you must have 3 shots of this vaccine plus boosters as needed. Tell your doctor right away if you have any serious or unusual side effects after getting this vaccine. Ondansetron Oral disintegrating tablet What is this medicine? ONDANSETRON (on LUZ ELENA se walker) is used to treat nausea and vomiting caused by chemotherapy. It is also used to prevent or treat nausea and vomiting after surgery. How should I use this medicine? These tablets are made to dissolve in the mouth. Do not try to push the tablet through the foil backing. With dry hands, peel away the foil backing and gently remove the tablet. Place the tablet in the mouth and allow it to dissolve, then swallow. While you may take these tablets with water, it is not necessary to do so. Talk to your night time nanny regarding the use of this medicine in children. Special care may be needed. What side effects may I notice from receiving this medicine? Side effects that you should report to your doctor or health day care assistant as soon as possible: allergic reactions like skin rash, itching or hives, swelling of the face, lips, or tongue breathing problems dizziness fast or irregular heartbeat feeling faint or lightheaded, falls fever and chills swelling of the hands and feet tightness in the chest Side effects that usually do not require medical attention (report to your doctor or health day care assistant if they continue or are bothersome): constipation or diarrhea headache What may interact with this medicine? Do not take this medicine with any of the following medications: -apomorphine -cisapride -dofetilide -dronedarone -pimozide -thioridazine -ziprasidone This medicine may also interact with the following medications: -carbamazepine -phenytoin -rifampicin -tramadol -other medicines that prolong the QT interval (cause an abnormal heart rhythm) What if I miss a dose? If you miss a dose, take it as soon as you can. If it is almost time for your next dose, take only that dose. Do not take double or extra doses. Where should I keep my medicine? Keep out of the reach of children. Store between 2 and 30 degrees C (36 and 86 degrees F). Throw away any unused medicine after the expiration date. What should I tell my health care provider before I take this medicine? They need to know if you have any of these conditions: heart disease history of irregular heartbeat liver disease low levels of magnesium or potassium in the blood an unusual or allergic reaction to ondansetron, granisetron, other medicines, foods, dyes, or preservatives or trying to get breast-feeding What should I watch for while using this medicine? Check with your doctor or health day care assistant as soon as you can if you have any sign of an allergic reaction. Cephalexin Monohydrate Oral tablet What is this medicine? CEPHALEXIN (sef a RALPH in) is a cephalosporin antibiotic. It is used to treat certain kinds of bacterial infections It will not work for colds, flu, or other viral infections. How should I use this medicine? Take this medicine by mouth with a full glass of water. Follow the directions on the prescription label. This medicine can be taken with or without food. Take your medicine at regular intervals. Do not take your medicine more often than directed. Take all of your medicine as directed even if you think you are better. Do not skip doses or stop your medicine early. Talk to your night time nanny regarding the use of this medicine in children. While this drug may be prescribed for selected conditions, precautions do apply. What side effects may I notice from receiving this medicine? Side effects that you should report to your doctor or health day care assistant as soon as possible: allergic reactions like skin rash, itching or hives, swelling of the face, lips, or tongue breathing problems pain or trouble passing urine redness, blistering, peeling or loosening of the skin, including inside the mouth severe or watery diarrhea unusually weak or tired yellowing of the eyes, skin Side effects that usually do not require medical attention (report to your doctor or health day care assistant if they continue or are bothersome): gas or heartburn genital or anal irritation headache joint or muscle pain nausea, vomiting What may interact with this medicine? probenecid some other antibiotics What if I miss a dose? If you miss a dose, take it as soon as you can. If it is almost time for your next dose, take only that dose. Do not take double or extra doses. There should be at least 4 to 6 hours between doses. Where should I keep my medicine? Keep out of the reach of children. Store at room temperature between 59 and 86 degrees F (15 and 30 degrees C). Throw away any unused medicine after the expiration date. What should I tell my health care provider before I take this medicine? They need to know if you have any of these conditions: kidney disease stomach or intestine problems, especially colitis an unusual or allergic reaction to cephalexin, other cephalosporins, penicillins, other antibiotics, medicines, foods, dyes or preservatives or trying to get breast-feeding What should I watch for while using this medicine? Tell your doctor or health day care assistant if your symptoms do not begin to improve in a few days. Do not treat diarrhea with over the counter products. Contact your doctor if you have diarrhea that lasts more than 2 days or if it is severe and watery. If you have diabetes, you may get a false-positive result for sugar in your urine. Check with your doctor or health day care assistant. Hydrocodone Bitartrate, Acetaminophen Oral tablet What is this medicine? ACETAMINOPHEN; HYDROCODONE (a set a MATTY rangel fen; lucius droe KOE done) is a pain reliever. It is used to treat mild to moderate pain. How should I use this medicine? Take this medicine by mouth. Swallow it with a full glass of water. Follow the directions on the prescription label. If the medicine upsets your stomach, take the medicine with food or milk. Do not take more than you are told to take. Talk to your night time nanny regarding the use of this medicine in children. This medicine is not approved for use in children. What side effects may I notice from receiving this medicine? Side effects that you should report to your doctor or health day care assistant as soon as possible: allergic reactions like skin rash, itching or hives, swelling of the face, lips, or tongue breathing problems confusion feeling faint or lightheaded, falls stomach pain yellowing of the eyes or skin Side effects that usually do not require medical attention (report to your doctor or health day care assistant if they continue or are bothersome): nausea, vomiting stomach upset What may interact with this medicine? alcohol antihistamines isoniazid medicines for depression, anxiety, or psychotic disturbances medicines for sleep muscle relaxants naltrexone narcotic medicines (opiates) for pain phenobarbital ritonavir tramadol What if I miss a dose? If you miss a dose, take it as soon as you can. If it is almost time for your next dose, take only that dose. Do not take double or extra doses. Where should I keep my medicine? Keep out of the reach of children. This medicine can be abused. Keep your medicine in a safe place to protect it from theft. Do not share this medicine with anyone. Selling or giving away this medicine is dangerous and against the law. Store at room temperature between 15 and 30 degrees C (59 and 86 degrees F). Protect from light. Keep container tightly closed. Throw away any unused medicine after the expiration date. Discard unused medicine and used packaging carefully. Pets and children can be harmed if they find used or lost packages. What should I tell my health care provider before I take this medicine? They need to know if you have any of these conditions: brain tumor Crohn's disease, inflammatory bowel disease, or ulcerative colitis drink more than 3 alcohol-containing drinks per day drug abuse or addiction head injury heart or circulation problems kidney disease or problems going to the bathroom liver disease lung disease, asthma, or breathing problems an unusual or allergic reaction to acetaminophen, hydrocodone, other opioid analgesics, other medicines, foods, dyes, or preservatives or trying to get breast-feeding What should I watch for while using this medicine? Tell your doctor or health day care assistant if your pain does not go away, if it gets worse, or if you have new or a different type of pain. You may develop tolerance to the medicine. Tolerance means that you will need a higher dose of the medicine for pain relief. Tolerance is normal and is expected if you take the medicine for a long time. Do not suddenly stop taking your medicine because you may develop a severe reaction. Your body becomes used to the medicine. This does NOT mean you are addicted. Addiction is a behavior related to getting and using a drug for a non-medical reason. If you have pain, you have a medical reason to take pain medicine. Your doctor will tell you how much medicine to take. If your doctor wants you to stop the medicine, the dose will be slowly lowered over time to avoid any side effects. You may get drowsy or dizzy when you first start taking the medicine or change doses. Do not drive, use machinery, or do anything that may be dangerous until you know how the medicine affects you. Stand or sit up slowly. There are different types of narcotic medicines (opiates) for pain. If you take more than one type at the same time, you may have more side effects. Give your health care provider a list of all medicines you use. Your doctor will tell you how much medicine to take. Do not take more medicine than directed. Call emergency for help if you have problems breathing. The medicine will cause constipation. Try to have a bowel movement at least every 2 to 3 days. If you do not have a bowel movement for 3 days, call your doctor or health day care assistant. Too much acetaminophen can be very dangerous. Do not take Tylenol (acetaminophen) or medicines that contain acetaminophen with this medicine. Many non-prescription medicines contain acetaminophen. Always read the labels carefully. Ibuprofen Oral tablet What is this medicine? IBUPROFEN (eye BYOO proe fen) is a non-steroidal anti-inflammatory drug (NSAID). It is used for dental pain, fever, headaches or migraines, osteoarthritis, rheumatoid arthritis, or painful monthly periods. It can also relieve minor aches and pains caused by a cold, flu, or sore throat. How should I use this medicine? Take this medicine by mouth with a glass of water. Follow the directions on the prescription label. Take this medicine with food if your stomach gets upset. Try to not lie down for at least 10 minutes after you take the medicine. Take your medicine at regular intervals. Do not take your medicine more often than directed. A special MedGuide will be given to you by the pharmacist with each prescription and refill. Be sure to read this information carefully each time. Talk to your night time nanny regarding the use of this medicine in children. Special care may be needed. What side effects may I notice from receiving this medicine? Side effects that you should report to your doctor or health day care assistant as soon as possible: allergic reactions like skin rash, itching or hives, swelling of the face, lips, or tongue black or bloody stools, blood in the urine or in vomit breathing problems changes in vision chest pain general ill feeling or flu-like symptoms nausea or vomiting redness, blistering, peeling or loosening of the skin, including inside the mouth slurred speech or weakness on one side of the body stomach pain unexplained weight gain or swelling unusually weak or tired yellowing of eyes or skin Side effects that usually do not require medical attention (report to your doctor or health day care assistant if they continue or are bothersome): constipation or diarrhea dizziness gas or heartburn stomach upset What may interact with this medicine? Do not take this medicine with any of the following medications: cidofovir ketorolac methotrexate pemetrexed This medicine may also interact with the following medications: alcohol aspirin diuretics lithium other drugs for inflammation like prednisone warfarin What if I miss a dose? If you miss a dose, take it as soon as you can. If it is almost time for your next dose, take only that dose. Do not take double or extra doses. Where should I keep my medicine? Keep out of the reach of children. Store at room temperature between 15 and 30 degrees C (59 and 86 degrees F). Keep container tightly closed. Throw away any unused medicine after the expiration date. What should I tell my health care provider before I take this medicine? They need to know if you have any of these conditions: asthma cigarette smoker drink more than 3 alcohol containing drinks a day heart disease or circulation problems such as heart failure or leg edema (fluid retention) high blood pressure kidney disease liver disease stomach bleeding or ulcers an unusual or allergic reaction to ibuprofen, aspirin, other NSAIDS, other medicines, foods, dyes, or preservatives or trying to get breast-feeding What should I watch for while using this medicine? Tell your doctor or healthcare professional if your symptoms do not start to get better or if they get worse. This medicine does not prevent heart attack or stroke. In fact, this medicine may increase the chance of a heart attack or stroke. The chance may increase with longer use of this medicine and in people who have heart disease. If you take aspirin to prevent heart attack or stroke, talk with your doctor or health day care assistant. Do not take other medicines that contain aspirin, ibuprofen, or naproxen with this medicine. Side effects such as stomach upset, nausea, or ulcers may be more likely to occur. Many medicines available without a prescription should not be taken with this medicine. This medicine can cause ulcers and bleeding in the stomach and intestines at any time during treatment. Ulcers and bleeding can happen without warning symptoms and can cause . To reduce your risk, do not smoke cigarettes or drink alcohol while you are taking this medicine. You may get drowsy or dizzy. Do not drive, use machinery, or do anything that needs mental alertness until you know how this medicine affects you. Do not stand or sit up quickly, especially if you are an older patient. This reduces the risk of dizzy or fainting spells. This medicine can cause you to bleed more easily. Try to avoid damage to your teeth and gums when you brush or floss your teeth. You have been given the following additional information: Fracture, Finger (Open) Splint Care, Fiberglass Diphtheria Toxoid Adsorbed, Pertussis Vaccine, Acellular (Adsorbed), Tetanus Toxoid, Adsorbed Suspension for injection Ondansetron Oral disintegrating tablet Cephalexin Monohydrate Oral tablet Hydrocodone Bitartrate, Acetaminophen Oral tablet Ibuprofen Oral tablet (Electronically signed by Trina Rivera A.R.N.P. 05/15/2016 16:50)
== END 2016-05-15 16:00 | disposition home or self-care (01) ==
LOC: ED SRH 13:07
DX: S62.515B Nondisplaced fracture of proximal phalanx of left thumb, initial encounter for open fracture (principal); S61.012A Laceration without foreign body of left thumb without damage to nail, initial encounter; W31.2XXA Contact with powered woodworking and forming machines, initial encounter; Y93.9 Activity, unspecified; Y99.9 Unspecified external cause status; Y92.009 Unspecified place in unspecified non-institutional (private) residence as the place of occurrence of the external cause; Z23 Encounter for immunization

== ENCOUNTER 2016-07-01 16:02 | Outpatient (CLI) | payer OTHER ==
--- NOTE | 2016-07-01 18:13 | DIAGNOSTIC IMAGING REPORT ---
PROCEDURE: US COMPLETE PELVIC W/TRANSVAG INDICATION: PELVIC PAIN TECHNIQUE: Transabdominal and endovaginal mendez scale and color Doppler sonographic images of the female pelvis were obtained. COMPARISON: None. FINDINGS: TRANSABDOMINAL SCANS: Uterus is of normal size (6.5 x 5.8 x 4.8 cm). There is a small amount of free fluid in Morison's pouch and at the margins of the liver. TRANSVAGINAL SCANS: Moderate increase endometrial thickness (2.2 cm). Trace fluid in the endometrial canal. Ovaries are normal (right 2.4 cm, left 3.8 cm) with normal vascularity. Small to moderate amount of free fluid in the pelvis. IMPRESSION: 1. Moderate increase endometrial thickness (2.2 cm) with small to moderate free fluid in the pelvis, small amount of fluid free fluid in the upper abdomen. 2. Etiology of this process is not entirely clear. If the patient were to have positive test, one might consider an early undeveloped intrauterine (with ruptured ovarian cyst), or ruptured ectopic (less likely). If a test is negative, this could still represent a ruptured ovarian cyst, although other causes might also be considered (e.g., endometriosis). 3. Findings discussed with the patient and called to Dr. Taylor Corrales.
== END 2016-07-01 23:00 ==
LOC: US SRH 16:02
DX: R93.8 Abnormal findings on diagnostic imaging of other specified body structures (principal)